=== PATIENT | female | born 1975 | race Two or more races ===

== ENCOUNTER 2019-05-14 10:00 | Emergency (ER) | payer OTHER ==
[~2019-05-14] VITALS: Ht 162.6 cm; Wt 67.7 kg
[2019-05-14 10:09] VITALS: BP 148/86
[2019-05-14] MEDS ORDERED: VALA10005 PO (10:41)
[2019-05-14] MEDS ORDERED: valACYclovir 500 MG TABLET. PO STA (10:43)
--- NOTE | 2019-05-14 10:43 | PHYS DOC ---
Past History Past Medical History: No Pertinent History Past Surgical History: Other Additional Past Surgical Histo: NOSE SURGERY Alcohol Use: None Adult General Chief Complaint Chief Complaint: SKIN PROBLEM HPI HPI Patient is a 44-year-old female who presents for evaluation of shingles infection. Patient was being seen at urgent care and when they noted the location of patient's feels infection, they sent patient to the ER for further evaluation. Patient states that symptoms began about 3 days ago, feeling like it was gritty in her eye and then yesterday she noticed that it felt like she was being bitten by ants all over her face and then this morning she noticed a rash to her for head with swelling to her left upper eyelid. She denies any visual changes.[] Review of Systems Review of Systems Constitutional: Denies fever or chills [] Eyes: Complains of left eye pain, redness and upper eyelid swelling[] HENT: Denies nasal congestion or sore throat [] Respiratory: Denies cough or shortness of breath [] Cardiovascular: No additional information not addressed in HPI [] Integument: Positive vesicular rash left forehead[] Neurologic: Denies headache, focal weakness or sensory changes [] Allergies Allergies Allergies Coded Allergies Type Severity Reaction Last Updated Verified promethazine Allergy Unknown 05/14/19 Yes Physical Exam Physical Exam Constitutional: Well developed, well nourished, no acute distress, non-toxic appearance. [] HENT: Normocephalic, atraumatic, bilateral external ears normal, oropharynx moist, no oral exudates, nose normal. [] Eyes: PERRLA, EOMI, conjunctiva injected left eye, no discharge. Swelling and re dness is noted to the left upper eyelid [] Cardiovascular: Regular rate and rhythm[] Lungs & Thorax: Bilateral breath sounds clear to auscultation [] Skin: A vesicular rash is noted to the left forehead, extending to the left upper eyelid and into the scalp. [] Neurologic: Alert and oriented X 3, no focal deficits noted. [] Current Patient Data Vital Signs Vital Signs Date Time Temp Pulse Resp B/P (MAP) Pulse Ox O2 Delivery O2 Flow Rate FiO2 05/14/19 10:09 97.8 65 18 148/86 (106) 99 Room Air EKG EKG [] Radiology/Procedures Radiology/Procedures [] Course & Med Decision Making Course & Med Decision Making Pertinent Labs and Imaging studies reviewed. (See chart for details) [] Dragon Disclaimer Dragon Disclaimer This electronic medical record was generated, in whole or in part, using a voice recognition dictation system. Departure Departure: Impression: Primary Impression: Herpes zoster ophthalmicus Disposition: 01 HOME/RESIDENCE PRIOR TO ADM Condition: STABLE Referrals: NARAYAN LEE DO, [facility] (PCP) DIONNE WELCH DO Follow-up in Dr. Welch's office at 1:00 PM today. Patient Instructions: Shingles Scripts Valacyclovir Hcl (VALTREX) 1,000 Mg Tablet 1 TAB PO TID for shingles, #21 TAB Prov: THOMAS VALDIVIA Jr., DO 05/14/19 THOMAS VALDIVIA Jr., DO May 14, 2019 10:43
[2019-05-14] MEDS ORDERED: valACYclovir 500 MG TABLET. ONE (10:45)
== END 2019-05-14 10:49 | disposition home or self-care (01) ==
LOC: ER 10:00
DX: B02.30 Zoster ocular disease, unspecified (principal); Z88.8 Allergy status to other drugs, medicaments and biological substances
CPT/HCPCS: 99283